=== PATIENT | female | born 1960 | race Caucasian/White ===

== ENCOUNTER 2019-10-31 17:41 | Observation (INO) | payer BC ==
[~2019-10-31] VITALS: Ht 157.5 cm; Wt 81.8 kg
[2019-10-31 18:20] LABS: BASOPHILS # (AUTO) 0.1 X10'3 (0-0.2); BASOPHILS % (AUTO) 1.2 % (0-1); EOSINOPHILS # (AUTO) 0.1 X10'3 (0-0.9); EOSINOPHILS % (AUTO) 0.9 % (0-6); HEMATOCRIT 40.7 % (35.0-45.0); LYMPHOCYTES # (AUTO) 2.9 X10'3 (1.1-4.8); LYMPHOCYTES % (AUTO) 33.9 % (21-51); MEAN CORPUSCULAR HEMOGLOBIN 32.7 PG (27.0-31.0); MEAN CORPUSCULAR HGB CONC 34.5 g/dL (33.0-36.5); MEAN CORPUSCULAR VOLUME 94.8 FL (78-98); MEAN PLATELET VOLUME 7.9 FL (7.4-10.4); MONOCYTES # (AUTO) 0.6 X10'3 (0-0.9); MONOCYTES % (AUTO) 6.4 % (2-12); NEUTROPHILS % (AUTO) 57.6 % (42-75); PLATELET COUNT 240 X10'3 (140-440); RED BLOOD COUNT 4.29 X10'6 (4.20-5.60); RED CELL DISTRIBUTION WIDTH 12.9 % (11.5-14.5); WHITE BLOOD COUNT 8.6 X10'3 (4.5-11.0)
[2019-10-31 18:36] LABS: ALANINE AMINOTRANSFERASE 47 U/L (12-78); ALBUMIN 3.4 G/DL (3.4-5.0); ALKALINE PHOSPHATASE 76 IU/L (46-116); ANION GAP 7 (8-16); ASPARTATE AMINO TRANSFERASE 26 U/L (10-37); BILIRUBIN,TOTAL 0.2 MG/DL (0.1-1.0); BLOOD UREA NITROGEN 16 MG/DL (7-18); BUN/CREATININE RATIO 27.1 (6.6-38.0); CALCIUM 9.2 MG/DL (8.5-10.1); CHLORIDE 111 MMOL/L (99-107); CREATININE 0.59 MG/DL (0.40-0.90); GLUCOSE 109 MG/DL (70-104); SODIUM 148 MMOL/L (135-145); TOTAL CARBON DIOXIDE 30.2 MMOL/L (24-32); TOTAL PROTEIN 6.7 G/DL (6.4-8.2); eGFR > 90 ML/MIN
[2019-10-31] MEDS ORDERED: LEVO50TA PO (19:02)
[2019-10-31] MEDS ORDERED: LIOT5TAB10 PO (19:02)
[2019-10-31] MEDS ORDERED: AMIT10TA6 PO (19:02)
[2019-10-31] MEDS ORDERED: acetaminophen 325mg tablet PO ONE (19:55)
[2019-10-31] MEDS ORDERED: mag hydrox/Alum hydrox/simeth 30ml oral suspension PO PRN (21:00)
[2019-10-31] MEDS ORDERED: magnesium 4gm in 100ml NS 100 ML IV PRN (21:00)
[2019-10-31] MEDS ORDERED: potassium CL 10mEq/100ml bag 100 ML IV PRN ×2 (21:00)
[2019-10-31] MEDS ORDERED: magnesium hydroxide 30ml (MOM) UD suspension PO PRN (21:00)
[2019-10-31] MEDS ORDERED: acetaminophen 325mg tablet PO PRN ×2 (21:00)
[2019-10-31] MEDS ORDERED: magnesium Cl slow-release 64mg tablet PO PRN (21:00)
[2019-10-31] MEDS ORDERED: magnesium 2GM in 50ml NS 50 ML IV PRN (21:00)
[2019-10-31] MEDS ORDERED: ondansetron/PF 4mg/2ml inj IV PRN (21:00)
[2019-10-31] MEDS ORDERED: potassium Cl 20 mEq SR tablet PO PRN ×2 (21:00)
[2019-10-31] MEDS ORDERED: nitroGLYCERIN 0.4mg SUBLingual tab SL PRN (21:05)
--- NOTE | 2019-10-31 22:58 | NUR ---
Received report from ER nurse Lin SILVA. Will assume patient care.
[2019-10-31 23:30] VITALS: BP 160/78
[2019-11-01] VITALS (10 sets, daily range): BP systolic 141–192; BP diastolic 60–92
[2019-11-01] MEDS ORDERED: amitriptyline 10mg tablet PO ONE (00:35)
[2019-11-01] MEDS ORDERED: regadenoson 0.4mg/5ml syringe IV ONE (01:15)
[2019-11-01] MEDS ORDERED: aminophylline 250mg/10ml inj. IV PRN (01:15)
[2019-11-01] MEDS ORDERED: metoprolol tartrate 1mg/ml inj IV PRN (01:15)
[2019-11-01] MEDS ORDERED: nitroGLYCERIN 0.4mg SUBLingual tab SL PRN (01:15)
--- NOTE | 2019-11-01 01:31 | NUR ---
Patient noted to have a Nitro ointment to her chest. No time noted on it. Patient stated it was put on her at [facility]. Nitro Bid removed and wiped off. Patient is schedule for [facility] today. No Nitro patch to be on patient per procedures book.
[2019-11-01 04:58] LABS: BASOPHILS % (AUTO) 0.3 % (0-1); EOSINOPHILS # (AUTO) 0.1 X10'3 (0-0.9); EOSINOPHILS % (AUTO) 1.8 % (0-6); HEMATOCRIT 41.2 % (35.0-45.0); HEMOGLOBIN 13.9 g/dl (12.0-16.0); LYMPHOCYTES % (AUTO) 38.8 % (21-51); MEAN CORPUSCULAR HEMOGLOBIN 31.9 PG (27.0-31.0); MEAN CORPUSCULAR HGB CONC 33.8 g/dL (33.0-36.5); MEAN CORPUSCULAR VOLUME 94.5 FL (78-98); MONOCYTES # (AUTO) 0.5 X10'3 (0-0.9); MONOCYTES % (AUTO) 6.7 % (2-12); NEUTROPHILS % (AUTO) 52.4 % (42-75); PLATELET COUNT 240 X10'3 (140-440); RED BLOOD COUNT 4.36 X10'6 (4.20-5.60); RED CELL DISTRIBUTION WIDTH 13.3 % (11.5-14.5); WHITE BLOOD COUNT 7.7 X10'3 (4.5-11.0)
[2019-11-01 05:09] LABS: ALBUMIN 3.2 G/DL (3.4-5.0); ANION GAP 6 (8-16); BLOOD UREA NITROGEN 17 MG/DL (7-18); BUN/CREATININE RATIO 28.8 (6.6-38.0); CALCIUM 8.9 MG/DL (8.5-10.1); CHLORIDE 111 MMOL/L (99-107); CREATININE 0.59 MG/DL (0.40-0.90); GLUCOSE 100 MG/DL (70-104); MAGNESIUM 1.8 MG/DL (1.5-2.4); POTASSIUM 4.1 MMOL/L (3.5-5.1); SODIUM 144 MMOL/L (135-145); TOTAL CARBON DIOXIDE 27.5 MMOL/L (24-32); eGFR > 90 ML/MIN
[2019-11-01 05:19] LABS: CHOL/HDL RATIO 8.2 (0.00-4.99); CHOLESTEROL 310 MG/DL (0-200); HDL CHOLESTEROL 38 MG/DL (35-60); LDL CHOLESTEROL 235 MG/DL (50-100); TRIGLYCERIDES 287 MG/DL (20-135)
--- NOTE | 2019-11-01 06:27 | NUR ---
Problems reprioritized. Patient report given, questions answered & plan of care reviewed with Lita SILVA.
--- NOTE | 2019-11-01 06:35 | NUR ---
Patient in room RENU 349A. I have received report from Mariam SLIVA and had the opportunity to ask questions and assume patient care. Patient laying in bed, awake, watching TV, complains of mild headache, Will give Tylenol for pain
[2019-11-01] MEDS ORDERED: liothyronine sod 5mcg tablet PO SCH (07:30)
[2019-11-01] MEDS ORDERED: levoTHYROXINE 25mcg tablet PO SCH (07:30)
[2019-11-01] MEDS ORDERED: K and/or MAG REPLACEMENT MC SCH (08:00)
[2019-11-01] MEDS ORDERED: enoxaparin 40mg/0.4ml syringe SQ SCH (08:00)
[2019-11-01] MEDS ORDERED: aspirin 325mg tablet, delayed-release (Ecotrin) PO SCH (08:00)
[2019-11-01] MEDS ORDERED: metoprolol tartrate 12.5mg (1/2 tablet) PO SCH ×2 (08:00→12:40)
--- NOTE | 2019-11-01 08:00 | NUR ---
Patient off floor for Lexiscan.
--- NOTE | 2019-11-01 11:35 | NUR ---
Patient returned to floor from Lexiscan, laying in bed in no distress. No complaints of chest pain, states that headache has improved after Tylenol, rates 2/10 pain. Awaiting results of lexiscan, will continue to monitor patient.
[2019-11-01] MEDS ORDERED: ASPI-611 PO (12:41)
[2019-11-01] MEDS ORDERED: NITR0.4T51 SL (12:41)
[2019-11-01] MEDS ORDERED: METO25TA6 PO (12:41)
--- NOTE | 2019-11-01 13:58 | NUR ---
Paged hospitalist, Dr. Velez, regarding patient. PAGER ID: [phone] MESSAGE: Lita barba [phone]. RE Gen MorrisA. Echo is done, per pyrotechnic mixer is normal. Can I discharge patient? Thanks!
--- NOTE | 2019-11-01 14:45 | NUR ---
Per MD order, Dr. Ortiz, patient is stable for discharge home. He has reviewed echo and okay to proceed with discharge. Discharge packet printed and reviewed with patient. [facility] [place]. IV removed with cannula intact. Tele monitor removed and returned to tele office. Discharge packet reviewed with patient and all questions answered. Patient escorted to private vehicle via wheelchair to go home with .
[2019-11-02] MEDS ORDERED: atorvastatin 20mg tablet PO SCH (08:00)
== END 2019-11-01 14:45 | disposition home or self-care (01) ==
LOC: ER 17:42 → ED HOLD 20:59 → CMPBEDREQ 23:45 → SUR 3N 23:46
PROVIDERS: ADMIT Hospitalist; ATTEND Family Medicine
DX: I20.9 Angina pectoris, unspecified (principal); E78.5 Hyperlipidemia, unspecified; T49.0X5A Adverse effect of local antifungal, anti-infective and anti-inflammatory drugs, initial encounter; I10 Essential (primary) hypertension; M79.7 Fibromyalgia; E03.9 Hypothyroidism, unspecified; Z90.49 Acquired absence of other specified parts of digestive tract; Z90.89 Acquired absence of other organs; Z87.891 Personal history of nicotine dependence; Z82.49 Family history of ischemic heart disease and other diseases of the circulatory system; Z79.82 Long term (current) use of aspirin; Z79.899 Other long term (current) drug therapy; Z88.2 Allergy status to sulfonamides
CPT/HCPCS: 36415; 71045; 78452; 80048; 80053; 80061; 83735; 83880; 84484; 85025; 87081; 93005; 93017; 93306; 96372; 99284; A9500; G0378; J2785; J1650